=== PATIENT | female | born 1970 | race Caucasian/White ===

== ENCOUNTER 2022-12-15 10:02 | Day surgery (SDC) | payer OTHER ==
[~2022-12-15] VITALS: Ht 162.6 cm; Wt 112.0 kg
[~2022-12-15 10:02] MED LIST: ACET-503 PO; FERR-15 PO; IBUP-974 PO; MULT-2000 PO
[2022-12-15] MEDS ORDERED: LIDOCAINE 2% 100 MG/5 ML UJET TP ONE (12:20)
[2022-12-15] MEDS ORDERED: fentaNYL citrate 0.05 MG/ML VIAL ONE (12:20)
[2022-12-15] MEDS ORDERED: MIDAZOLAM 2 MG/2 ML VIAL ONE (12:39)
[2022-12-15] MEDS ORDERED: fentaNYL citrate 0.05 MG/ML VIAL IVP ONE (13:15)
[2022-12-15] MEDS ORDERED: MIDAZOLAM 2 MG/2 ML VIAL IVP ONE (13:15)
== END 2022-12-15 13:40 | disposition home or self-care (01) ==
LOC: MDS 10:02 → MMU 10:03 → MDS 13:40
PROVIDERS: ATTEND Internal Medicine Gastroenterology
DX: Z12.11 Encounter for screening for malignant neoplasm of colon (principal); K57.30 Diverticulosis of large intestine without perforation or abscess without bleeding; K64.4 Residual hemorrhoidal skin tags; I10 Essential (primary) hypertension; E66.9 Obesity, unspecified; G47.30 Sleep apnea, unspecified; Z99.89 Dependence on other enabling machines and devices; Z79.899 Other long term (current) drug therapy; Z68.41 Body mass index [BMI] 40.0-44.9, adult; Z90.49 Acquired absence of other specified parts of digestive tract; Z90.710 Acquired absence of both cervix and uterus
CPT/HCPCS: 45378; J2250; J3010